=== PATIENT | male | born 1975 | race Caucasian/White ===

== ENCOUNTER 2020-11-06 15:56 | Inpatient (IN) | payer OTHER ==
[~2020-11-06] VITALS: Ht 172.7 cm; Wt 94.3 kg
[2020-11-06] MEDS ORDERED: IV NORMAL SALINE 1,000ML 1,000 ML IV ONE (16:30)
[2020-11-06] MEDS ORDERED: ONDANSETRON PF 4 MG/2 ML VIAL. IVP ONE (16:30)
--- NOTE | 2020-11-06 16:37 | PHYS DOC ---
Past History Past Surgical History: No Surgical History General Adult EDM: Chief Complaint: ABDOMINAL PAIN HPI: HPI: Patient is a 45-year-old male who presents to the ER for midsternal chest pain that radiates into his epigastric region and right upper quadrant that started 30 minutes prior to arrival. Patient rates the pain 7 out of 10. He describes it as a constant cramping pain. No alleviating or aggravating factors. No treatment prior to arrival. Patient is also reporting shortness of breath that is mild. Patient denies nausea, vomiting, lightheadedness, cough, diaphoresis. He has no medical problems and takes no medications at home. He has no family history of cardiovascular disease. His vital signs are stable. Review of Systems: Review of Systems: 14 body systems of the review of systems have been reviewed. See HPI for pertinent positive and negative responses, otherwise all other systems are negative, nonpertinent or noncontributory Allergies: Allergies: Allergies Coded Allergies Type Severity Reaction Last Updated Verified No Known Drug Allergies 11/06/20 No Physical Exam: PE: Constitutional: Well developed, well nourished, no acute distress, non-toxic appearance. [] HENT: Normocephalic, atraumatic Eyes: PERRL, conjunctiva normal, no discharge. [] Neck: Normal range of motion, no tenderness, supple, no stridor. [] Cardiovascular:Heart rate regular rhythm, no murmur, chest pain is not reproducible with palpation of chest wall. [] Lungs & Thorax: Bilateral breath sounds clear to auscultation [] Abdomen: Bowel sounds normal, soft, no masses, no pulsatile masses, right upper quadrant and epigastric pain with palpation, negative Segovia sign, no rebound tenderness. [] Skin: Warm, dry, no erythema, no rash. [] Back: Normal range of motion Extremities: No tenderness, no cyanosis, no clubbing, ROM intact, no edema. [] Neurologic: Alert and oriented X 3, normal motor function, normal sensory function, no focal deficits noted. [] Psychologic: Affect normal, judgement normal, mood normal. [] Current Patient Data: Labs: Laboratory Tests Test 11/06/20 16:45 White Blood Count 12.2 x10^3/uL Red Blood Count 4.87 x10^6/uL Hemoglobin 14.9 g/dL Hematocrit 44.6 % Mean Corpuscular Volume 92 fL Mean Corpuscular Hemoglobin 31 pg Mean Corpuscular Hemoglobin Concent 33 g/dL Red Cell Distribution Width 13.7 % Platelet Count 212 x10^3/uL Neutrophils (%) (Auto) 71 % Lymphocytes (%) (Auto) 19 % Monocytes (%) (Auto) 8 % Eosinophils (%) (Auto) 2 % Basophils (%) (Auto) 1 % Neutrophils # (Auto) 8.7 x10^3uL Lymphocytes # (Auto) 2.3 x10^3/uL Monocytes # (Auto) 1.0 x10^3/uL Eosinophils # (Auto) 0.2 x10^3/uL Basophils # (Auto) 0.1 x10^3/uL Sodium Level 145 mmol/L Potassium Level 3.8 mmol/L Chloride Level 109 mmol/L Carbon Dioxide Level 24 mmol/L Anion Gap 12 Blood Urea Nitrogen 12 mg/dL Creatinine 1.0 mg/dL Estimated GFR (Cockcroft-Gault) 80.8 BUN/Creatinine Ratio 12 Glucose Level 102 mg/dL Calcium Level 9.0 mg/dL Total Bilirubin 0.3 mg/dL Aspartate Amino Transf (AST/SGOT) 24 U/L Alanine Aminotransferase (ALT/SGPT) 42 U/L Alkaline Phosphatase 83 U/L Troponin I Quantitative < 0.017 ng/mL Total Protein 6.9 g/dL Albumin 3.9 g/dL Albumin/Globulin Ratio 1.3 Lipase 94732 U/L Current Medications Medications (Trade) Dose Ordered Sig/Lupe Route PRN Reason Start Time Stop Time Status Last Admin Dose Admin Sodium Chloride 1,000 ml @ 1,000 mls/hr 1X ONCE IV 11/06/20 16:30 11/06/20 17:29 DC Ondansetron HCl (Zofran) 4 mg 1X ONCE IVP 11/06/20 16:30 11/06/20 16:35 DC Fentanyl Citrate (Fentanyl 2ml Vial) 50 mcg 1X ONCE IVP 11/06/20 16:30 11/06/20 16:35 DC 11/06/20 16:30 Fentanyl Citrate (Fentanyl 2ml Vial) 50 mcg 1X ONCE IVP 11/06/20 18:15 11/06/20 18:16 DC Fentanyl Citrate (Fentanyl 2ml Vial) 50 mcg 1X ONCE IM 11/06/20 18:15 11/06/20 18:16 DC Vital Signs: Vital Signs Date Time Temp Pulse Resp B/P (MAP) Pulse Ox O2 Delivery O2 Flow Rate FiO2 11/06/20 16:05 98.2 96 20 154/92 97 Room Air EKG: EKG: EKG performed by ER staff at 1634 shows sinus rhythm, no STEMI as read by Dr. Ocampo at 1635 Radiology/Procedures: Radiology/Procedures: REASON: chest pain PROCEDURE: CHEST PA & LATERAL PA and lateral chest. HISTORY: Chest pain PA and lateral views were taken of the chest. Heart is normal in size. There is no pleural effusion. Lungs are free of infiltrates. IMPRESSION: 1. No acute infiltrates. Electronically signed by: Aidan Moran MD (11/06/2020 4:51 PM) [facility] DICTATED AND SIGNED BY: AIDAN MORAN MD DATE: 11/06/20 1649 CC: JAVIER ECHOLS APRN; PCP,NO; ISRAEL OCAMPO DO ~MTH0 0 PROCEDURE: ABDOMEN LTD US ABDOMEN LIMITED History: Right upper quadrant pain. Comparison: None. Technique: Sonographic examination of the right upper quadrant of the abdomen. Findings: Pancreas: Visualized portions unremarkable. Liver: The liver measures 17.4 cm. Liver echotexture is normal. No focal hepatic lesions. Hepatopetal flow in the portal vein. Gallbladder: No gallstones, wall thickening or pericholecystic fluid. Sonographic Segovia's sign is reportedly negative. Bile ducts: The common duct measures 4 mm. Right kidney: 11.5 cm in length. There is mild hydronephrosis. No nephrolithiasis identified. Aorta/IVC: Visualized portions are unremarkable. Other: No ascites. Impression: 1. Mild right hydronephrosis. Correlate for renal colic. 2. No cholelithiasis or cholecystitis. 3. Electronically signed by: Holland Duque MD (11/06/2020 5:03 PM) [facility] DICTATED AND SIGNED BY: HOLLAND DUQUE MD DATE: 11/06/20 1701 CC: JAVIER ECHOLS APRN; PCP,NO; ISRAEL OCAMPO DO ~MTH0 0 PROCEDURE: CT ABD PELV W/ IV CONTRST ONLY Exam: CT of abdomen and pelvis with contrast INDICATION: Elevated lipase TECHNIQUE: Sequential axial images through the abdomen and pelvis obtained following the administration of 75 mL of Isovue-370 IV contrast. Sagittal and coronal reformatted images were reconstructed from the axial data and reviewed. Exposure: One or more of the following in the visualized dose reduction techniques were utilized for this examination: 1. Automated exposure control 2. Adjustment of the MA and/or KV according to patient size 3. Use of iterative of reconstructive technique Comparisons: Ultrasound same day FINDINGS: Heart size is normal. No pericardial strandy opacities at dependent portion lungs likely representing atelectasis. No pleural effusion. Liver, spleen, gallbladder and adrenals are unremarkable. There is stranding and edema surrounding the pancreas. There is moderate right-sided hydronephrosis with an obstructing 6 mm calculus at the proximal right ureter. Additionally there are nonobstructing renal calculi. Bladder is persistent and not well evaluated. Prostate is not enlarged. Large and small bowel are unremarkable. Appendix is normal. No free intra- abdominal air or fluid. No obstruction. Abdominal aorta has a normal course and caliber. Abdominal vasculature is patent. No enlarged abdominal lymph nodes are identified. No suspicious osseous lesions or acute fractures. IMPRESSION: 1. A 6 mm calculus at the proximal right ureter causing mild to moderate right- sided hydronephrosis. 2. Stranding and edema surrounding the pancreas favored represent pancreatitis. 3. Bilateral nonobstructing renal calculi are noted. Electronically signed by: Ivory Blanchard MD (11/06/2020 7:24 PM) [facility] DICTATED AND SIGNED BY: IVORY BLANCHARD MD DATE: 11/06/201917 CC: JAVIER ECHOLS EGGS INSPECTOR; PCP,NO; ISRAEL OCAMPO DO ~MTH0 0 Heart Score: C/O Chest Pain: Yes HEART Score for Chest Pain: HEART Score for Chest Pain Response (Comments) Value History Slighlty/Non-Suspicious 0 ECG Normal 0 Age < 45 0 Risk Factors No Risk Factors 0 Troponin < Normal Limit 0 Total 0 Risk Factors: Risk Factors: DM, Current or recent (<one month) smoker, HTN, HLP, family history of CAD, obesity. Risk Scores: Score 0 - 3: 2.5% MACE over next 6 weeks - Discharge Home Score 4 - 6: 20.3% MACE over next 6 weeks - Admit for Clinical Observation Score 7 - 10: 72.7% MACE over next 6 weeks - Early Invasive Strategies Course & Med Decision Making: Course & Med Decision Making Pertinent Labs and Imaging studies reviewed. (See chart for details) Patient is a 45-year-old male being seen in the ER today for midsternal chest pain that radiates into the epigastric and right upper quadrant. Work-up in the ER consisted of blood work, EKG, ultrasound of his right upper quadrant, chest x-ray. Patient was treated in the ER with normal saline, nausea medication, pain medication. Patient elevated white blood cell count, lipase of 21, 315, CT scan of abdomen showed pancreatitis and kidney stone. Patient reports that he rarely drinks alcohol. He states he has 1 drink a week. Patient's case discussed with admitting physician. Dr. Jasmine will admit patient under his care for acute pancreatitis. Care transferred at this time 1940. Amanda Disclaimer: Amanda Disclaimer: This electronic medical record was generated, in whole or in part, using a voice recognition dictation system. Departure Departure: Impression: Primary Impression: Acute pancreatitis Qualified Codes: K85.90 - Acute pancreatitis without necrosis or infection, unspecified Disposition: ADMITTED INPATIENT Condition: STABLE Referrals: PCP,ALEKSANDRA (PCP) JAVIER ECHOLS EGGS INSPECTOR Nov 06, 2020 16:37
--- NOTE | 2020-11-06 16:53 | RAD ---
PA and lateral chest. HISTORY: Chest pain PA and lateral views were taken of the chest. Heart is normal in size. There is no pleural effusion. Lungs are free of infiltrates. IMPRESSION: 1. No acute infiltrates. Electronically signed by: Aidan Moran MD (11/06/2020 4:51 PM) [facility]
--- NOTE | 2020-11-06 17:06 | RAD ---
US ABDOMEN LIMITED History: Right upper quadrant pain. Comparison: None. Technique: Sonographic examination of the right upper quadrant of the abdomen. Findings: Pancreas: Visualized portions unremarkable. Liver: The liver measures 17.4 cm. Liver echotexture is normal. No focal hepatic lesions. Hepatopet al flow in the portal vein. Gallbladder: No gallstones, wall thickening or pericholecystic fluid. Sonographic Segovia's sign is re portedly negative. Bile ducts: The common duct measures 4 mm. Right kidney: 11.5 cm in length. There is mild hydronephrosis. No nephrolithiasis identified. Aorta/IVC: Visualized portions are unremarkable. Other: No ascites. Impression: 1. Mild right hydronephrosis. Correlate for renal colic. 2. No cholelithiasis or cholecystitis. 3. Electronically signed by: Holland Coreas MD (11/06/2020 5:03 PM) [facility]
[2020-11-06 17:25] LABS: BASO # 0.1 x10^3/uL (0.0-0.2); BASO % 1 % (0-3); EOS # 0.2 x10^3/uL (0.0-0.7); EOS % 2 % (0-3); HEMATOCRIT 44.6 % (39.0-53.0); HEMOGLOBIN 14.9 g/dL (13.0-17.5); LYMPH # 2.3 x10^3/uL (1.0-4.8); LYMPH % 19 % (24-48); MEAN CORPUSCULAR HEMOGLOBIN 31 pg (25-35); MEAN CORPUSCULAR HGB CONC 33 g/dL (31-37); MEAN CORPUSCULAR VOLUME 92 fL (79-100); MONO % 8 % (0-9); NEUT # 8.7 x10^3uL (1.8-7.7); NEUT % 71 % (31-73); PLATELET COUNT 212 x10^3/uL (140-400); RED BLOOD COUNT 4.87 x10^6/uL (4.30-5.70); RED CELL DISTRIBUTION WIDTH 13.7 % (11.5-14.5); WHITE BLOOD COUNT 12.2 x10^3/uL (4.0-11.0)
[2020-11-06 17:33] LABS: GFR 80.8; POTASSIUM 3.8 mmol/L (3.5-5.1)
[2020-11-06 17:40] LABS: ALBUMIN 3.9 g/dL (3.4-5.0); ALBUMIN/GLOBULIN RATIO 1.3 (1.0-1.7); TOTAL BILIRUBIN 0.3 mg/dL (0.2-1.0); TOTAL PROTEIN 6.9 g/dL (6.4-8.2)
[2020-11-06] MEDS ORDERED: HYDROmorphone PF 1 MG/ML DISP.SYRIN IVP ONE (18:45)
[2020-11-06] MEDS ORDERED: IOHEXOL 300 MG/ML 75 ML VIAL. IV ONE (18:45)
--- NOTE | 2020-11-06 19:27 | RAD ---
Exam: CT of abdomen and pelvis with contrast INDICATION: Elevated lipase TECHNIQUE: Sequential axial images through the abdomen and pelvis obtained following the administrati on of 75 mL of Isovue-370 IV contrast. Sagittal and coronal reformatted images were reconstructed fro m the axial data and reviewed. Exposure: One or more of the following in the visualized dose reduction techniques were utilized for this examination: 1. Automated exposure control 2. Adjustment of the MA and/or KV according to patient size 3. Use of iterative of reconstructive technique Comparisons: Ultrasound same day FINDINGS: Heart size is normal. No pericardial strandy opacities at dependent portion lungs likely representing atelectasis. No pleural effusion. Liver, spleen, gallbladder and adrenals are unremarkable. There is stranding and edema surrounding the pancreas. There is moderate right-sided hydronephrosis with an obstructing 6 mm calculus at the proximal right ureter. Additionally there are nonobstructing renal calculi. Bladder is persistent and not well evaluated. Prostate is not enlarged. Large and small bowel are unremarkable. Appendix is normal. No free intra-abdominal air or fluid. No obstruction. Abdominal aorta has a normal course and caliber. Abdominal vasculature is patent. No enlarged abdominal lymph nodes are identified. No suspicious osseous lesions or acute fractures. IMPRESSION: 1. A 6 mm calculus at the proximal right ureter causing mild to moderate right-sided hydronephrosis. 2. Stranding and edema surrounding the pancreas favored represent pancreatitis. 3. Bilateral nonobstructing renal calculi are noted. Electronically signed by: Ivory Richter MD (11/06/2020 7:24 PM) [facility]
[2020-11-06] MEDS ORDERED: ONDANSETRON PF 4 MG/2 ML VIAL. IVP PRN (19:45)
[2020-11-06] MEDS: IV NORMAL SALINE 1,000ML 1,000 ML IV SCH (21:20)
[2020-11-06 22:42] VITALS: BP 143/82
--- NOTE | 2020-11-06 23:35 | NUR ---
PT ADMITTED TO 119 FOR ACUTE PANCREATITIS VIA EMS ACCOMPANIED BY NURSING AIRCRAFT ENGINE MECHANIC SUPERVISOR. PT AMBULATED FROM GURNEY TO BED INDEPENDENTLY. PT IS AOX4. AT THE TIME OF ADMISSION ASSESSMENT PT DENIES ANY PAST MEDICAL HISTORY OR HOME MEDICATIONS. PT REPORTED PAIN RATING 9/10 DURING TIME OF ADMISSION. PT GIVEN PRN FENTANYL INDICATED. POC DISCUSSED W/ VERBALIZED UNDERSTANDING. CALL LIGHT IN REACH WILL CONTINUE TO MONITOR.
[2020-11-07 05:56] VITALS: BP 170/97
[2020-11-07] MEDS: IV NORMAL SALINE 1,000ML 1,000 ML IV SCH ×2 (06:06→14:57)
[2020-11-07 06:12] LABS: BASO % 0 % (0-3); EOS % 0 % (0-3); HEMOGLOBIN 15.4 g/dL (13.0-17.5); LYMPH # 1.2 x10^3/uL (1.0-4.8); LYMPH % 10 % (24-48); MEAN CORPUSCULAR HEMOGLOBIN 31 pg (25-35); MEAN CORPUSCULAR HGB CONC 33 g/dL (31-37); MEAN CORPUSCULAR VOLUME 92 fL (79-100); MONO # 0.9 x10^3/uL (0.0-1.1); MONO % 8 % (0-9); NEUT # 9.7 x10^3uL (1.8-7.7); NEUT % 82 % (31-73); PLATELET COUNT 209 x10^3/uL (140-400); RED BLOOD COUNT 5.02 x10^6/uL (4.30-5.70); RED CELL DISTRIBUTION WIDTH 13.7 % (11.5-14.5); WHITE BLOOD COUNT 11.9 x10^3/uL (4.0-11.0)
[2020-11-07 06:25] LABS: ALBUMIN 3.7 g/dL (3.4-5.0); ALBUMIN/GLOBULIN RATIO 1.1 (1.0-1.7); CALCIUM 8.5 mg/dL (8.5-10.1); GFR 80.8; POTASSIUM 3.9 mmol/L (3.5-5.1); TOTAL BILIRUBIN 0.5 mg/dL (0.2-1.0)
--- NOTE | 2020-11-07 10:42 | HP ---
ADMIT DATE: 11/06/2020 ATTENDING PHYSICIAN: Dr. Jasmine. CHIEF COMPLAINT: Abdominal pain. 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 He comes in with epigastric pain, abdominal pain, 7/10, constant; nausea. No fevers, no recent COVID exposure. Workup showed elevated lipase and CT abdomen consistent with acute pancreatitis. There are no gallstones or dilatation of bile duct. He does admit to drinking alcohol 3-4 nights out of the week, 3-4 drinks daily. He is admitted then with alcoholic related pancreatitis. PAST MEDICAL HISTORY: Unremarkable for any chronic illnesses. ALLERGIES: He has no known drug allergies. He is not on any prescription drugs. SOCIAL HISTORY: He is a nonsmoker. Drinking history as noted. FAMILY HISTORY: Parents alive in the mid 70s. He is . He has 4 sons that are healthy. One still lives at home. REVIEW OF SYSTEMS: Significant for the alcohol use. No gallbladder disease. No drug use. All other systems reviewed and turned to be negative. PHYSICAL EXAMINATION: GENERAL: When I saw him, this is a pleasant gentleman. INITIAL VITAL SIGNS: Showed blood pressure 170/90, pulse is 82 and regular, oxygen saturation 93% on room air. He is afebrile. HEENT: Head is without trauma. Pupils are reactive. Sclerae nonicteric. Oropharynx is clear. NECK: Supple, no bruits. LUNGS: Clear. CARDIOVASCULAR: Regular heart tones. ABDOMEN: Soft. Minimal guarding, no rebound tenderness. Bowel sounds are hypoactive. EXTREMITIES: Show no cyanosis or edema. NEUROLOGIC: Focally intact. SKIN: Warm and dry. PERTINENT LABORATORY STUDIES: Admission hemoglobin 14.9 g/dL, white count 12,200. Electrolytes within normal range. Cardiac enzymes negative. Lipase level of 21,315. CT abdomen was noted. ASSESSMENT: 1. 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 2. Alcohol-related pancreatitis. 3. Hypertension. PLAN: 1. Admit to the inpatient unit. 2. Gentle IV hydration. 3. Pain and nausea control. 4. Advance diet as tolerated. He had been n.p.o. ASHUTOSH/ABEL/ERIN DR: ASHUTOSH/keyonna TID: [id number]
[2020-11-07 10:49] VITALS: BP 154/88
[2020-11-07 14:58] VITALS: BP 164/99
--- NOTE | 2020-11-07 17:46 | NUR ---
NURSING NOTE PT HAS BEEN RESTING IN THE BED TODAY, A&O, CALM, COOPERATIVE, PLEASANT. PAIN AROUND 4-6 /10. PT HAS BEEN GIVEN 1 DOSE OF PAIN MEDICATION. PT OFFERED AND DECLINED STATING "I WANT TO SEE IF I CAN MAKE IT WITHOUT HAVING PAIN MEDICATION". PT DIET ADVANCED TO CLEAR LIQ PER DR DEL VALLE. PT REQUEST FOR LUNCH ICE CHIPS ONLY. PT HAD JELLO, JUICE, AND ICE CHIPS FOR DINNER AND TOLERATING WELL. WILL CONTINUE TO MONITOR. NORBERTO CARRANZA.
[2020-11-07 19:49] VITALS: BP 144/80
[2020-11-07] MEDS ORDERED: ONDANSETRON PF 4 MG/2 ML VIAL. IVP PRN (20:00)
[2020-11-08] MEDS ORDERED: IV NORMAL SALINE 1,000ML 1,000 ML IV SCH (03:00)
--- NOTE | 2020-11-08 05:22 | NUR ---
Nursing note: Pt denied pain meds through shift, stating that while abd was "tender" in epigastric/RQ areas, pt did not require medication. IVF as ordered, no c/o nausea or vomiting. Pt rested much of shift.
[2020-11-08 07:20] VITALS: BP 156/70
--- NOTE | 2020-11-08 12:27 | NUR ---
DISCHARGE NOTE Pt discharged by Dr. Jasmine today. Pt verbalized understanding of discharge and prescriptions. All questions addressed. VSS, GCS 15 and ambulatory at discharge. CC, RN
--- NOTE | 2020-11-08 14:27 | DS ---
DATE OF DISCHARGE: 11/08/2020 ATTENDING PHYSICIAN: Dr. Jasmine. FINAL DISCHARGE DIAGNOSES: 1. A 45-year-old gentleman with acute pancreatitis. 2. Alcohol-related pancreatitis. 3. Hypertension. 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 He presented with abdominal pain, nausea and epigastric pain consistent with acute pancreatitis. He does drink alcohol on a regular basis. PHYSICAL EXAMINATION: Please see the dictated note. PERTINENT LABORATORY AND X-RAY STUDIES: Admission hemoglobin was 14.9 g/dL, white count 12,200. Electrolytes within normal range. His serum lipase level was 21,350. CT of the abdomen showed no evidence of blockage or stones. There is some hydronephrosis with a 6 mm calculus. He is not symptomatic. There are other nonobstructing renal calculi, stranding and edema surrounding the pancreas favoring acute pancreatitis. COURSE IN HOSPITAL: The patient was admitted. He was kept n.p.o. Pain and nausea medicines were administered. He did well. Gradually, he tolerated some clear liquid diet. By the third hospital day, his vital signs were stable. He wanted to go home. I felt this is reasonable. Strong encouragement to avoid further alcohol use. He understands and is very appropriate. Therefore, he was discharged home. [facility], Percocet 10/325 one every 6 hours p.r.n. pain. He will [facility]. He was discharged then from our hospital in stable condition with explicit drug and followup care. ASHUTOSH/JEY DR: Christie TID: [id number]
--- NOTE | 2020-11-10 12:40 | EKG ---
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
== END 2020-11-08 12:20 | disposition home or self-care (01) | DRG 439 ==
LOC: ER 15:56 → 1 SOUTH 19:37
PROVIDERS: ADMIT Hospitalist; ATTEND Hospitalist
DX: K85.20 Alcohol induced acute pancreatitis without necrosis or infection (principal); N13.2 Hydronephrosis with renal and ureteral calculous obstruction; I10 Essential (primary) hypertension; Z79.899 Other long term (current) drug therapy; Z20.822 Contact with and (suspected) exposure to COVID-19
CPT/HCPCS: 36415; 71046; 74177; 76705; 80053; 83690; 84484; 85025; 93005; 96374; 96375; G0480; J1170; J3010; Q9967; 99285-25; J7030